=== PATIENT | male | born 1970 | race Caucasian/White ===

== ENCOUNTER 2017-02-26 16:04 | Emergency (ER) | payer SELFPAY ==
[2017-02-26 16:27] LABS: BASOPHIL COUNT 0.1 K/uL (0-0.1); EOSINOPHIL (%) 1.7 % (0-5); EOSINOPHIL COUNT 0.1 K/uL (0-0.3); HEMATOCRIT 42.7 % (38.0-50.0); IMMATURE GRANULOCYTE (%) 0.8 % (0.0-0.7); IMMATURE GRANULOCYTE COUNT 0.1 K/uL; INSTRUMENT ABS NEUTROPHIL CT 4.9 K/uL; LYMPHOCYTE COUNT 1.8 K/uL (1.0-2.8); MCH 29.4 PG (29.0-34.0); MCHC 33.3 G/DL (30.0-36.0); MCV 88.4 FL (86-99); MEAN PLAT.VOLUME 9.6 uM^3 (9.0-12.4); MONOCYTE COUNT 0.5 K/uL (0-0.8); NEUTROPHIL (%) 65.8 % (45-76); NEUTROPHIL COUNT 4.9 K/uL (1.8-6.4); PLATELET COUNT 267 K/uL (156-360); RBC DIS.WIDTH-CV 14.6 % (11.8-14.6); RBC DIS.WIDTH-SD 47.1 % (39-53); RED BLOOD COUNT 4.83 M/uL (4.00-5.50); WHITE BLOOD COUNT 7.5 K/uL (4.1-10.2)
[2017-02-26 16:36] LABS: AMYLASE 72 IU/L (1-118); CHLORIDE 105 mEq/L (99-109); POTASSIUM 3.6 mEq/L (3.7-5.4); SODIUM 141 mEq/L (136-147)
[2017-02-26 16:38] LABS: GLUCOSE 95 mg/dL (70-99)
[2017-02-26 16:40] LABS: ANION GAP 12 MEQ/L (2-14)
[2017-02-26 16:41] LABS: SERUM ETHYL ALCOHOL < 10 mg/dL
[2017-02-26 16:42] LABS: GFR ESTIMATE (CALCULATED) > 59 mL/min/
[2017-02-26 16:43] LABS: UREA NITROGEN (BUN) 21 mg/dL (9-23)
[2017-02-26 16:45] LABS: LIPASE 30 U/L (1.0-51.0)
== END 2017-02-26 18:58 | disposition home or self-care (01) ==
LOC: TRA 16:04
PROVIDERS: Emergency Medicine
PROC: 0HQEXZZ Repair Left Lower Arm Skin, External Approach (ICD-10-PCS; principal; 2017-02-26)
DX: S51.812A Laceration without foreign body of left forearm, initial encounter (principal); W29.8XXA Contact with other powered hand tools and household machinery, initial encounter; R55 Syncope and collapse
CPT/HCPCS: 73090; 80048; 81003; 82150; 83690; 85025; 86900; 86901; 99281; 99285; G0480